=== PATIENT | male | born 1960 | race Hispanic/Latino ===

== ENCOUNTER 2018-08-01 17:04 | Inpatient (IN) | payer MEDICAID ==
[~2018-08-01] VITALS: Ht 180.3 cm; Wt 116.5 kg
[2018-08-01] MEDS ORDERED: LANTUS100 UNITS/ SUB-Q (17:17)
[2018-08-01] MEDS ORDERED: HUMULIN R100 UNIT/1 SUB-Q (17:18)
[2018-08-01] MEDS ORDERED: GABAPENTIN600 MG PO (17:21)
[2018-08-01] MEDS ORDERED: PERCOCET 5-3251 EACH PO (17:21)
--- NOTE | 2018-08-01 20:45 | NUR ---
PT ADMITTED TO ROOM 113 FROM ED NEAR 2029. PT STATED HE WAS UNABLE TO STAND HIS RIGHT KNEE GIVES OUT. HE WAS ABLE TO WITH ASSISTANCE OF STAFF, SLIDE SELF OFF STRETCHER TO HIS BED. STEVIE EDEMA LEGS, ANKLES, SCROTUM, PAINFUL WHEN MOVING. FRYE WITH ARIA URINE.
--- NOTE | 2018-08-01 20:50 | NUR ---
PT REQUESTED TO GET UP TO HAVE A BM, STAFF CONCERNED ABOUT PT COMMENT ABOUT UNABLE TO STAND D/T HIS KNEE BUT INSISTED TO GET UP TO BSC WITH 2 STAFF. PAINFUL, NO BM, BUT FLATUS. BACK TO BED, NEEDED ASSISTANCE PUTTING LEGS INTO BED, MIMINAL ASSISTANCE. PT INSISTED TO EAT THE MCDONALDS THAT HIS JACQUELINE BROUGHT. ARMANDO GRIJALVA. PT WAS SHORT COMMENTED, SHARP TONES WHEN HE RESPONDED TO QUESTIONS. WANTED THE REMOTE TO WATCH TV, AND SOMETHING FOR PAIN. EDUCATED PT ABOUT THE PROCESS OF ADMISSION. WHILE THIS NURSE WAS ADMITTING PT, DR GALLEGOS ENTERED THE ROOM, PLEASANTLY INFORMED PT THAT HE WOULD NOT BE ABLE TO CONTINUE TO EAT THIS FOOD AFTER THIS MEAL. PT WAS INSTRUCTED THAT HE IS ON A FLUID RESTRICTION, HE VERBALLY STATED HE UNDERSTOOD, HE ATE THE GEORGIAN FRIES AND DRANK THE DIET PEPSI. STATES THAT HE NEEDS A "NEW MACHINE" TO TEST HIS SUGARS, AND THAT HE HASN'T BEEN TAKING HIS INSULIN HE RAN OUT, HAS NO PCP IN THE AREA HE JUST "MOVED HERE".
--- NOTE | 2018-08-02 02:10 | NUR ---
Awake, c/o abd pain, scrotal pain and leg pain 12/09. Medicated with Oxycodone 5mg po. Warm blanket give, no c/o low or high blood sugars s/sx. NPO since midnight. f/c patent. no changes in assessment
--- NOTE | 2018-08-02 04:56 | NUR ---
CURRENTLY AWAKE, HAS BEEN MEDICATED 2X WITH OXYCODE AND 1X WITH TYLENOL PO PER C/O ABD PAIN. EFFECTIVE. PT REQUIRES ONE PERSON ASSIST, HAS BEEN UP TO BR AND NO BM. F/C PATENT. EDEMATOUS SCROTUM ELEVATED WITH PILLOWS. ABD LARGE ANDS ASCITIC, RASH OVER ABD STILL PRESENT. SEVERAL SCABS AND SCRATCHES ALL OVER BODY, IN DIFFERENT STAGES OF HEALING PRESENT. EDEMATOUS LEGS, ANKLES NAD FEET W/O CHANGES. REPOSITIONS SELF IN BED. NPO SINCE MIDNIGHT FOR AM PROCEDURE. CBG WAS 338, RECEIVED 9 UNITS SS INSULIN, DENIES S/SX OF HYPOGLYCEMIA. WAS VERY ANXIOUS, IRRITABLE AND NOT RECEPTIVE ON ADMISSION. BEHAVIOR MUCH CALMER, AND FOLLOWING INSTRUCTIONS.
--- NOTE | 2018-08-02 06:47 | NUR ---
US OF KNEES COMPLETED, PT COOPERATIVE, NO C/O PAIN, NPO
--- NOTE | 2018-08-02 07:00 | NUR ---
BEDSIDE HANDOFF REPORT RECEIVDE FROM SUPPLY CHAIN SPECIALIST RN. PT COMPLAINT OF BEING NPO, EDUCATED THAT HE IS NPO FOR ULTRASOUND THIS AM. PT DENIES OTHER NEEDS AT THIS TIME.
--- NOTE | 2018-08-02 08:00 | NUR ---
WARM WASH CLOTH OFFERED. SHOWER OFFERED. HE SAYS HE MIGHT LIKE ONE LATER. CALL LIGHT IN AX. NO FURTHER NEEDS AT THIS TIME.
--- NOTE | 2018-08-02 08:19 | NUR ---
PT ON ROOM AIR, LUNG SOUNDS CLEAR. PT RATIGN PAIN 8/10 TO ANKLES, GIVEN 5 MG OXYCODONE. PT UPDATED ON PLAN FOR ABD US AT 0900. BOWEL TONES ACTIVE, DENIES NAUSEA, ABD FIRM WITH ASCITES. PT WITH MULTIPLE SCATTERED SCABS ON ARMS AND LEGS. PT WITH FRYE, DRAINING FREELY, IV LASIX GIVEN. CMS INTACT, PT WITH EDEMA TO BLE 2+. PT DENIES OTHER NEEDS AT THIS TIME.
[2018-08-02] MEDS ORDERED: LISINOPRIL10 MG PO (08:21)
[2018-08-02] MEDS ORDERED: BASAGLAR K100 UNIT/1 SUB-Q (08:22)
--- NOTE | 2018-08-02 09:46 | NUR ---
ABD ULTRASOUND COPMPLETED. PT ASSITED TO ORDER BREAKFATS. MORNING MEDICATIONS GIVEN. PT PROVIDED WITH FRESH WATER. PT DENIES OTHER NEEDS AT THIS TIME.
--- NOTE | 2018-08-02 12:00 | NUR ---
PT BLOOD GLUCOSE 202 GIVEN SS HUMALOG 3 UNITS AND 5 UNITS HUMALIN. PT WIHT GOOD APPETITE, TOLERATING ADA DIET. PT CONTINUES TO HAVE EDEMA TO BLE 2-3+, LEGS ELEVATED. PT DENIES OTHER NEEDS AT THIS TIME.
--- NOTE | 2018-08-02 14:00 | NUR ---
PT RESTING IN BED. PT RATING PAIN 8/10 TO ANKLES AND FEET, GIVEN 5 MG OXYCODONE. PT ON ROOM AIR, LUNGH SOUNDS CLEAR. BOWEL TONES CTIVE, ASCITES UNCHANGED. EDEMA TO BLE 2-3+ UNCHANGED. PT DENIES OTHER NEEDS AT THIS TIME.
[2018-08-02] MEDS ORDERED: NORCO 7.5-3251 EACH PO (14:17)
--- NOTE | 2018-08-02 14:24 | NUR ---
SPOKE WITH PATIENT IN ROOM. PATIENT STATES HE MOVED HERE ABOUT TWO WEEKS AGO AND IS STAYING WITH HIS DAUGHTER. HE INTENDS TO BUY A HOME HERE AND STAY. DISCUSSED PCP NEED. HE STATES HE DOES NOT HAVE INSURANCE IN [place] YET. DISCUSSED I CAN TALK WITH OUR FIG WASHER AND HAVE HER WORK WITH HIM. HE IS AGREEABLE TO THIS. DISCUSSED OPTIONS FOR PRIMARY CARE IN TOWN, AND SURROUNDING AREA. STATES HE CAN'T SEE ANYONE UNTIL HE GETS INSURANCE. DISCUSSED HE WILL NEED TO GET OLD RECORDS TRANSFERRED. PATIENT STATES HE NORMALLY DOES NOT USE DME, ALTHOUGH HE HAS A CANE. STATES HE COULDN'T GET OOB BECAUSE OF HIS LEG SWELLING AND MIGHT NEED A WALKER. STATES HE JUST STARTED GETTING SOME DISABLILITY PAYMENTS. STATES HE WANTS TO TALK WITH HIS DAUGHTER ABOUT WHO TO SEE IN THE AREA. STATES HIS DAUGHTERS PLACE HAS TWO STEPS IN AND HE SLEEPS ON FIRST LEVEL, BATHROOM IS ON SECOND FLOOR. STATES HE IS GOING TO LOOK FOR A ONE STORY PLACE IN [facility]. DISCUSSED WITH PATIENT THAT WE WILL START WITH INSURANCE NEEDS AND WILL CONTINUE TO FOLLOW HERE AND AFTER DISCHARGE. HE IS IN AGREEMENT WITH THIS. DISCUSSED CHW PROGRAM, HE IS INTERESTED IN THIS.NO FURTHER QUESTIONS AT THIS TIME. WILL CONTINUE TO FOLLOW. SPOKE WITH NICKEL PLATER WHO IS GOING TO CALL AND OBTAIN OLD RECORDS WITH INFORMATION PATIENT GAVE HER. SPOKE WITH [employer] FIG WASHER TO REQUEST HER TO WORK WITH PATIENT ON COVERAGE. SHE AGREED. STAFF UPDATED.
--- NOTE | 2018-08-02 14:25 | NUR ---
Medications reconciled using pharmacy records and patient interview
--- NOTE | 2018-08-02 17:28 | NUR ---
PT GIVEN 7 UNITS SS HUMALOG AND 5 UNITS HUMALIN PER ORDER. PT EATING DINNER. PT DENIES OTHER NEEDS AT THIS TIME.
--- NOTE | 2018-08-02 17:29 | NUR ---
PT ON ROOM AIR, LUNG SOUNDS CLEAR. PT WITH ASCITES, ABD US SHOWED PORTAL HYPERTENSION. PT TOLERATING ADA DIET WITH FLUID RESTRICTION, ACHS ACCUCHECKS, HUMALIN, SS HUMALOG AND LANTUS. PT WITH EDEMA TO BLE 2-3+, SCOTAL SWELLING. 1PA TO AMBULATE. PT WITH FRYE CATH, DRAINING FREELY. PAIN WELL CONTROLLED WITH OXYCODONE 5 MG AND GABAPENTIN.
--- NOTE | 2018-08-02 19:33 | NUR ---
PATIENT IS SETTING UP IN BED WATCHING TV, NO NEEDS AT THIS TIME.
--- NOTE | 2018-08-02 21:23 | NUR ---
PATIENT HAS RECEIVED PM MEDS PAIN WS AT 02/08. PATIENTCURRENTLY RESSTING IN BED WATCHING TV.
--- NOTE | 2018-08-02 23:30 | NUR ---
PATIENT IS SITTING UP IN BED WATCHING TV. PAIN IS DOWN FROM A 10/10 TO 7/10.
--- NOTE | 2018-08-03 01:11 | NUR ---
PATIENT JUST GOT BACK INTO BED AFTER USING THE BATHROM ANDD HAVING A BIG BM. CATHETER IS STILL WORKING FINE. WAS CALLED AND AN ORDER FOR 50MG PO TRAZADONE WAS GIVEN TO HELP THE PATIENT SLEEP.
--- NOTE | 2018-08-03 01:50 | NUR ---
PATIENT JUST GOT 5MG PO OXYCODONE. HE SAID THE TRAZIDONE WAS MAKING HIM SLEEPY, BUT WITH THE PAIN MEDICATION ON TOP OF IT, HE SHOULS BE ABLE TO GET SOME SLEEP.
--- NOTE | 2018-08-03 03:15 | NUR ---
PATIENT RESTING SUPINE, EYES CLOSED, RESPIRATIONS REGULAR AND EVEN AT 16. NO S/S OF DISTRESS.
--- NOTE | 2018-08-03 05:29 | NUR ---
PATIENT IS FINALLY RESTING QUIETLY, FRYE IS DRAINING WELL. PATIENT HAS BEEN ABLE TO AMBULATE INTO THE BATHROOM WITH ONE PERSON ASSIST AND HAS HAD HIS FIRST BM TONIGHT. STICKING TO HIS FLUID RESTRICTION.PATIENT HAS HAS TWO 5MG OXYCODONE FOR PAIN AND ON 50MG TRAZADONE THIS SHIFT AND APPEARS TO HAVE GOTTEN SOME SLEEP THE SECOND HALF OF THE SHIFTNOTHING ELSE TO REPORT AT THIS TIME.
--- NOTE | 2018-08-03 08:00 | NUR ---
PATIENT RESTING IN BED. ICE WATER GIVEN. CALL LIGHT WITHIN REACH. NO OTHER NEEDS AT THIS TIME
--- NOTE | 2018-08-03 08:15 | NUR ---
MD NOTIFIED OF PT BLOOD SUGAR OF 53, JUICE, CRACKERS AND PEANUT BUTTER GIVEN. PT BREAKFAST TRAY GIVEN, RECHECK OF BG 90. MORNING INSULIN HELD. NO NEW ORDERS.
--- NOTE | 2018-08-03 09:35 | NUR ---
PATIENT SLEEPING. VITAL SIGNS DONE BY RN. I&O DONE. CALL LIGHT WITHIN REACH. NO OTHER NEEDS AT THIS TIME
--- NOTE | 2018-08-03 10:03 | NUR ---
CHW PROVIDED PATIENT CURRENT INPATIENT RECORDS TO [employer] TO REVIEW PATIENT TO SEE IF A FOLLOW UP APT CAN BE MADE AFTER THE HOSPITALIZATION. GWEN STATED SHE WOULD BE IN CONTACT WITH ME WHEN SHE HEARS BACK ON THE STATUS. PRIETO FROM DIABETES EDUCATION WAS NOT AVAILABLE. CHW FOUND A COUPON ONLINE THAT IS PROVIDED BY [employer] PROVIDES FREE METER PATIENT WOULD HAVE TO PAY FOR THE TESTING STRIPS. AT [facility] THERE IS OPTIONS OF METER AND TESTING STRIPS FOR $15 A PACKAGE. PATIENT CURRENTLY HAS [facility] PL[facility] AND THAT INSURANCE DOES NOT COVER PHARMACIES IN THIS AREA. PATIENT CAN APPLY FOR MEDICAID IN [place] AT THE END OF THE MONTH.
--- NOTE | 2018-08-03 10:04 | NUR ---
PATIENT RESTING IN BED. PATIENT REFUSED TO TAKE A SHOWER TODAY BECAUSE HE TOOK A SHOWER YESTERDAY. ORAL CARE DONE BY PATIENT. CALL LIGHT WITHIN REACH. NO OTHER NEEDS AT THIS TIME
--- NOTE | 2018-08-03 11:39 | NUR ---
PATIENT RESTING IN BED. PATIENT'S LUNCH ORDERED. CALL LIGHT WITHIN REACH. NO OTHER NEEDS AT THIS TIME
--- NOTE | 2018-08-03 13:52 | NUR ---
PATIENT RESTING IN BED. VITAL SIGNS AND I&O DONE. PATIENT ASKS FOR PAIN MEDICINE. RN IN CHARGE NOTIFIED. CALL LIGHT WITHIN REACH. NO OTHER NEEDS AT THIS TIME
--- NOTE | 2018-08-03 14:00 | NUR ---
PT RATING PAIN 8/10, REQUESTING OXYCODONE, 5 MG GIVEN. PT ON ROOM AIR LUNG SOUNDS CLEAR. PT CONTINUES TO HAVE EDEMA TO BLE 3-4+. NO ACUTE CHANGES. DISCUSSED GETTING TO CHAIR FOR DINNER, PT REPORT OF PAIN WITH SITTING IN SCROTUM, DISCUSSED LIFTING SCROTUM BEFORE SITTING TO DECREASE PAIN AND PRESSURE. PT DENIES OTHER NEEDS AT THIS TIME.
--- NOTE | 2018-08-03 14:08 | NUR ---
ZO SCHRADER EXPRESSED THAT PT WAS NOT HAPPY ABOUT LUNCH BEING SO LATE, AND THAT HE APPARENTLY COULD NOT FIND CONDIMENTS-RN HELPING PT WITH LUNCH. FELT IT BEST TO LET PT HAVE LUNCH AND CHECK BACK AGAIN. WILL FOLLOW NEEDED
--- NOTE | 2018-08-03 14:16 | NUR ---
ENERGY EFFICIENCY ENGINEER IS ON VACATION SO I STOPPED IN TO TALK TO PATIENT. HE SAW A DIETITIAN IN [place] YEARS AGO. HE SAID THEY TAUGHT HIM WHAT'S GOOD AND WHAT'S BAD TO EAT. HE JUST MOVED TO [place] AND IS LIVING WITH DAUGHTER. HE IS NOT FOLLOWING A SPECIFIC MEAL PLAN. HE COUNTS CARBS "SOMETIMES." STATED HE IS NOT INTERESTED IN ANY INFO RIGHT NOW. HE JUST WANTS TO REST "HE IS HAVING A BAD DAY."
--- NOTE | 2018-08-03 15:35 | NUR ---
PT ALERT/ORIENTED. PT ON ROOM AIR, LUNG SOUNDS CLEAR. PT TOLERATING DIABETIC DIET, HYPOGLYCEMIC THIS AM BG 53. PT WITH EDEMA TO ABD, SCROTUM AND BLE. PT WITH PAIN AND NUMBNESS TO FEET, HX NEUROPATHY. PAIN WELL CONTROLLED WITH OXYCODONE 5MG. PT SALINE LOCKED, IV LASIX. PT WITH FRYE CATH, QS, HAD BM TODAY. PT UP WITH 1PA WITH FWW.
--- NOTE | 2018-08-03 15:52 | NUR ---
DISCUSSED WITH STAFF NURSE ANA AND GAVE HER FREE GLUCOSE METER SHEET FOR CHART. PHARMACY IS LOOKING INTO OPTIONS FOR MEDS BEING SENT AT DISCHARGE AND CHW WORKING ON TRYING TO GET APPT AT [facility] FOR FOLLOW UP.
--- NOTE | 2018-08-03 16:01 | NUR ---
I ORDERED PATIENT'S DINNER AND ALSO HIS BREAKFAST.
--- NOTE | 2018-08-03 17:10 | NUR ---
Pt sitting up in bed eating dinner and watching tv. Pt requested and received butter, fresh ice water in reach. 3 units Sub Q insulin administered -See EMAR. Pt denies further needs/concerns. Call light and h20 in reach.
--- NOTE | 2018-08-03 18:56 | NUR ---
PT RESTING SUPINE IN BED REPORTS NASAL CONGESTION AND 7/10 ANKLE PAIN. BP 167/92, HR 76 O2 SAT 99% ON RA. MD NOTIFIED, NO NEW ORDERS AT THIS TIME. CALL LIGHT AND H20 IN REACH. PT DENIES SOB.
--- NOTE | 2018-08-03 20:11 | NUR ---
BLOOD SUGAR DONE NAND CHARTED. ALSO INFORMED RN GLORIA OF #
--- NOTE | 2018-08-03 20:59 | NUR ---
PATIENT EATING SOME SUGAR FREE ICE CREAM, AND WATCHING TV WITH FAMILY.
--- NOTE | 2018-08-03 22:47 | NUR ---
c/o scrotum and ankle pain, medicated with tylenol 500mg po , continues on fluids restricton. no other requets, Taken over care at this time
--- NOTE | 2018-08-04 01:45 | NUR ---
RESTING, EYES CLOSED, NO DISTRESS. CALL LIGHT AT BEDSIDE, CONTINUES ON FLUIDS RESTRICTION
--- NOTE | 2018-08-04 05:15 | NUR ---
CURRENTLY IN BED RESTING. WEIGHT IS269.2# BED. CONTINUES TO BE ON FLUID RESTRICTIONS. EDEMATOUS SCROTUM W/O CHANGES, EDEMA OF LEGS,ANKLES AND FEET 2+ NON PITTING. RASH OVER ABD AND SCROTUM PRESENT. VARIOUS SCRATCHES AND SCABS OVER BODY W/O CHANGES. WAS MEDICATED WITH TYLENOL 500MG X1 AND OXYCODONE 5MG PO X1 PER C/O SCROTAL/LEG AND ANKLES PAIN, EFFECTIVE. F/C PATENT, DRAINING YELLOW URINE. QS. CALL LIGHT AT BEDSIDE, COOP WITH VITALS AND ASSESSMENTS
--- NOTE | 2018-08-04 05:45 | NUR ---
VITALS AND DAILY WEIGHT DONE AND CHARTED. INFORMED RN IZZY OF HIGH BLOOD PRESSURE. BEDSIDE TABLE AND CALL LIGHT IN REACH.
--- NOTE | 2018-08-04 08:50 | NUR ---
PT REPORTS 10/10 PAIN TO RIGHT ANKLE STATES IT IS IN THE SAME AREA THAT IT USUALLY ALWAYS HURTS BUT STATES IT IS WORSE THAN USUAL. DR GALLEGOS NOTIFIED; NO NEW ORDERS AT THIS TIME. PRN PO TYLENOL AND OXYCODONE WAS ADMINISTERED PO ALONG WITH SCHEDULED AM MEDICATIONS. ASSESSMENT COMPLETED. CALL LIGHT AND H20 IN REACH. SUGAR FREE CAROT CAKE ORDERD PER PT REQUEST. PT WATCHING TV, RESPIRATIONS EVEN AND UNLABORED AT 16.
--- NOTE | 2018-08-04 09:24 | NUR ---
PATIENT RESTING IN BED. VITAL SIGNS AND I&O DONE. PATIENT ASKS FOR CARROT CAKE. PATIENT'S CARROT CAKE ORDERED. PATIENT ASKS FOR SOME MEDICINE FOR HIS SINUSITIS. RN NOTIFIED. WARM BLANKET PROVIDED. CALL LIGHT WITHIN REACH. NO OTHER NEEDS AT THIS TIME
--- NOTE | 2018-08-04 13:31 | NUR ---
PATIENT RESTING IN BED. VITAL SIGNS AND I&O DONE. PATIENT ASKS FOR PUDDING SUGAR FREE. PUDDING SUGAR FREE GIVEN. CALL LIGHT WITHIN REACH. NO OTHER NEEDS AT THIS TIME
--- NOTE | 2018-08-04 14:48 | NUR ---
PT REPORTS PAIN OF 7/10 TO RIGHT ANKLE. PRN PO TYLENOL, OXYCODONE AND SCHEDULED GABAPENTIN ADMINISTERED PER PT REQUEST. ASSESSMENT COMPLETED. CALL LIGHT AND FRESH ICE WATER PROVIDED. NO FURTHER NEEDS VOICED.
--- NOTE | 2018-08-04 15:01 | NUR ---
PATIENT CALLS TO GET A SNACK. PATIENT'S SNACK AND DINNER ORDERED. CALL LIGHT WITHIN REACH. NO OTHER NEEDS AT THIS TIME
--- NOTE | 2018-08-04 16:21 | NUR ---
PATIENT CALLS TO USE BATHROOM. PATIENT IN BED. FAMILY IN ROOM. PATIENT GOES TO USE BATHROOM. PATIENT USES A WALKER. ONE PERSON ASSITING. LINENS CHANGED. PATIENT BACKS TO BED. CALL LIGHT WITHIN REACH. NO OTHER NEEDS AT THIS TIME
--- NOTE | 2018-08-04 17:23 | NUR ---
pt states "I cant go 13 hours with this smal dinner I got, if I dont get some more food I'm going to walk out and go home. I eat whateverIi wan't at home and it's fine" Pt educated on importance of adhering to diet ordered in order to keep blood sugar from raising too high. Dietary norified of pt's request and agree to bring pt low carb low sodium snack. Call light and h20 in reach. pt denies further needs/concerns
--- NOTE | 2018-08-04 17:25 | NUR ---
PATIENT RESTING IN BED. VITAL SIGNS AND I&O DONE. PATIENT ASKS FOR MORE FOOD, THIS AUTO REPAIR TECHNICIAN CALL THE KITCHEN BUT THEY SAID THAT THEY CAN NOT BRING MORE FOOD BECAUSE EXCEEDS THE AMOUNT OF CARBOHYDRATES, THE PATIENT IS UPSET. RN NOPTIFIED. CALL LIGHT WITHIN REACH. NO OTHER NEEDS AT THIS TIME
--- NOTE | 2018-08-04 17:48 | NUR ---
PT CURRENTLY RESTING IN BED WATCHING TV. PT COMPLIANT WITH 1800 FLUID RESTRICTION. PT REMAINS ON60 GM CARB/ADA DIET BUT REQUESTS MORE FOOD, DIETARY AWARE OF PT'S REQUESTS AND AGREE TO PROVIDE PT WITH LOW CARB SNACK. PT REMAINS A/O X4. PT COMPLIANT WITH CARE BUT THREATENS TO WALK OUT OF HOSPITAL WHEN THINGS ARE NOT GOING THE WAY HE WOULD LIKE THEM TO SUCH WHEN HIS DINNER PORTION WASN'T WHAT HE HOPED AND WHEN HE FELT HIS CHRONIC JOINT PAIN WASN'T BEING CONTROLLED WELL ENOUGH. PT REPORTS MAJORITY OF PAIN IS IN RIGHT ANKLE BUT ALSO HAS PAIN TO LEFT ANKLE AND RIGHT KNEE. DR GALLEGOS INCREASED GABAPENTIN DOSE FOR BETTER PAIN CONTROL. MORE RECENTLY DR ANDRADE INCREASED PT'S OXYCODONE TO 7.5MG AND ORDERED TOPICAL CREAM WELL. FRYE CATH WAS REMOVED TODAY AND PT HAS VOIDED SINCE. PT CONTINUES WITH AC/HS CBG CHECKS WITH S/S INSULIN. BILAT EDEMA TO LE'S PERSISTS DOES SWELLING TO GROIN AND ABDOMINAL DISTENTION. PT HAS DENIES DIFFICULTY BREATHING OR ANY OTHER CONCERNS WITH HIS CARE. SKIN CONDITION REMAINS UNCHANGED. PT ABLE TO AMBULATE IN ROOM AND WITH FWW AND ONLY REQUIRES MINIMUM 1PA TO LIFT RIGHT LEG BACK INTO BED.
--- NOTE | 2018-08-04 19:19 | NUR ---
RECIEVED BEDSIDE REPORT FROM STACY PATHAK. PATIENT AMBULATING IN HALLWAY WITH FWW, PATIENT SAFELY BACK INTO BED. WHITE BOARD UPDATED. PATIENT DENIES ANY NEEDS AT THIS TIME. CALL LIGHT WITHIN REACH.
--- NOTE | 2018-08-04 21:30 | NUR ---
ASSESSMENT COMPLETE, REFER TO ASSESSMENT. PATIENT REPORTS PAIN IN RIGHT LOWER LEG ON LATERAL SIDE, PRN PAIN MEDICATION ADMINISTRED TO PATIENT BY SPECIAL PROCEDURES TECH BEFORE ASSESSMENT. PATIENT REPORTS PAIN A "8/10" AND STATES "PAIN IS STARTING TO GO DOWN". WARM PACK APPLIED TO RIGHT LEG BY SPECIAL PROCEDURES TECHPRIETO. PATIENT DENIES HAVING SOB OR DIFFICULTY BREATHING, BUT REPORTS HAVING SOB WHILE EATING OR DRINKING WHEN PATIENT'S NOSE IS "PLUGGED". PATIENT REPORTS NUMBNESS IN BLE. +2 EDEMA NOTED IN BLE, PATIENT REFUSED TO HAVE BLE ELEVATED ON PILLOWS. MEDICATIONS ADMINSTERED PER MAR ORDER. CALL LIGHT WITHIN REACH. NO MORE NEEDS AT THIS TIME. URINAL PROVIDED TO PATIENT PER PATIENT REQUEST.
--- NOTE | 2018-08-04 22:16 | NUR ---
ROUNDED ON PATIENT LAYING AWAKE IN BED TO ADMINISTER PRN NASAL SPRAY PER PATIENT REQUEST AND PER JUN ORDER. CALL LIGHT WITHIN REACH. NO MORE NEEDS AT THIS TIME.
--- NOTE | 2018-08-04 22:26 | NUR ---
VS and I&O's were complete.
--- NOTE | 2018-08-05 00:14 | NUR ---
patient requested Jell-o and he had wiggle room with his liquids so it was approved.
--- NOTE | 2018-08-05 00:16 | NUR ---
ROUNDED ON PATIENT LAYING AWAKE IN BED. PATIENT REPORTS PAIN A "4/10" AND STATES PAIN IS "DOING PRETTY GOOD RIGHT NOW". CALL LIGHT WITHIN REACH. NO MORE NEEDS AT THIS TIMES.
--- NOTE | 2018-08-05 00:49 | NUR ---
PT WAS AMBULATING IN THE HALLWAY AND DID WELL. PT AT THIS TIME IS BACK IN BED WATCHING TV. PT HAS NO NEEDS AT THIS TIME. NO NEW COCNERNS NOTED EITHER.
--- NOTE | 2018-08-05 01:41 | NUR ---
ROUNDED ON PATIENT RESTING IN BED WITH EYES CLOSED, RESPIRATORY RATE IS EVEN AND UNLABORED. CALL LIGHT WITHIN REACH.
--- NOTE | 2018-08-05 04:24 | NUR ---
ASSESSMENT COMPLETE, REFER TO ASSESSMENT. PATIENT REPORTS "9/10" PAIN IN RIGHT KNEE AND SCROTAL AREA, PRN PAIN MEDICATION ADMINISTERED PER JUN ORDER. PATIENT REPORTS PAIN IN RIGHT KNEE AND RIGHT ANKLE, PRN JOINT PAIN CREAM APPLIED PER JUN ORDER. PATIENT INDEPENENTLY AMBULATED TO RESTROOM TO USE TOILET WITH THIS RN IN ROOM, PATIENT SAFELY BACK INTO BED. PATIENT DENIES CHEST PAIN, SOB OR DIFFICULT BREATHING. SUGAR FREE JELLO PROVIDED PER PATIENT REQUEST. PATIENT REPORTS NUMBNESS IN LUE AND BLE. CALL LIGHT WITHIN REACH. NO MORE NEEDS AT THIS TIME.
--- NOTE | 2018-08-05 05:25 | NUR ---
NOTIFED BY PSYCHOLOGICAL SCIENCE PROFESSOR THAT PATIENT REPORTED FEELING "WEAK" AND THAT THE PATIENT FELT THEIR BLOOD SUGAR WAS GETTING LOW. PSYCHOLOGICAL SCIENCE PROFESSOR OBTAINED PATIENT'S BLOOD GLUCOSE TO BE WNL. PATIENT REQUESTED FOOD THROUGHOUT THE NIGHT, THIS RN AND OTHER NURSING STAFF OFFERED PATIENT SUGAR FREE JELLO AND OTHER SNACKS WITHIN 60G CONSISTENT CARB DIET. PATIENT MOSTLY COMPLIANT WITH SUCH INTERVENTIONS THROUGHOUT THE NIGHT. PATIENT EXPRESSED FRUSTRATION AND RAISED VOICE AT THIS RN PATIENT WAS UPSET THAT PATIENT NEEDED SOMETHING MORE TO EAT TO DUE PATIENT REPORTS OF BEING "STARVING". PATIENT NON COMPLIANT WITH INTERVENTIONS ATTEMPTED BY NURSING STAFF TO FOLLOW SAW'S DIET ORDER AND INSISTENT ON RECIEVING ORANGE JUICE. SANDWICH PACK AND SMALL AMOUNT OF ORANGE JUICE PROVIDED TO PATIENT AND BREAKFAST ORDER RECIEVED WELL. PATIENT DEMEANOR CHANGE ONCE SANDWICH AND BREAKFAST ORDER OBTAINED. CALL LIGHT WITHIN REACH. NO MORE NEEDS AT THIS TIME.
--- NOTE | 2018-08-05 05:48 | NUR ---
patient was concerned about his Blood Sugar so i informed ZO Jeffries and she directed me to do a check. the reading was 86 and he insisted he was starving so i ran down and got him a sandwich box. this seemed to make him happy. he was raising his voice and repeating himself about how he wanted to leave.
--- NOTE | 2018-08-05 07:00 | NUR ---
Report received from ZO Jeffries. Pt resting supine in bed, watching tv. Call light and h20 in reach. Pt states "I'm just up waiting for breakfast" Pt denies needs/concerns and appears to be in no acute distress.
--- NOTE | 2018-08-05 07:05 | NUR ---
rounded on patient laying awake in bed. reassesed patient's pain, patient reports "6/10" pain. call light within reach. no more needs at this time.
--- NOTE | 2018-08-05 08:04 | NUR ---
PT AMBULATING UP TO NURSES STATION AND GOES TO TRAY SITTING AT NURSES STATION, READS PAPER AND SAYS "HEY THIS IS MINE WHY'S IT SITTING HERE GETTING COLD I'M STARVING". PT BACK TO ROOM, BS CHECKED -SEE EMAR. PT EATING BREAKFAST ASKS FOR EXTRA SAUSAGES AND THREE EXTRA BUTTERS. PT WAS EDUCATED ON HIS ADA DIET THAT IS ORDERED AND WAS INFORMED THAT THIS IS A DOCTORS ORDER SO WE ARE UNABLE TO ORDER MORE FOOD AT THIS TIME. CALL LIGHT AND H20 IN REACH AND PT DENIES FURTHER NEEDS.
--- NOTE | 2018-08-05 09:09 | NUR ---
PT UP AMBULATING IN ROOM, AM MEDS ADMINISTERED AND ASSESSMENT COMPLETED. CALL LIGHT AND H2O IN REACH. PT DENIES FURTHER NEEDS. OT IN TO SEE PATIENT.
--- NOTE | 2018-08-05 09:32 | NUR ---
PATIENT IN BED WATCHING TV. VITAL SIGNS AND I&O DONE. PATIENT REFUSED TO TAKE A SHOWER TODAY BECAUSE HE TOOK A SHOWER YESTERDAY. CALL LIGHT WITHIN REACH. NO OTHER NEEDS AT THIS TIME
[2018-08-05] MEDS ORDERED: GABAPENTIN600 MG PO (12:09)
[2018-08-05] MEDS ORDERED: FUROSEMIDE40 MG PO (12:10)
[2018-08-05] MEDS ORDERED: BASAGLAR K100 UNIT/1 SUB-Q (12:10)
[2018-08-05] MEDS ORDERED: OXYCODONE HCL5 MG PO (12:12)
[2018-08-05] MEDS ORDERED: SPIRONOLACTONE25 MG PO (12:12)
[2018-08-05] MEDS ORDERED: LISINOPRIL10 MG PO (12:12)
--- NOTE | 2018-08-05 13:55 | NUR ---
PT DC HOME AT THIS TIME WITH SHONA SON IN LAW, PHARMACY IN TO SPEAK WITH PT AND SON IN LAW. DC INSTRUCTION REVIEWED WITH PT, VERBALIZED UNDERSTANDING, NO QUESTIONS, STATES HE HAS EVERYTHING COVERED. SL DC. WC TO FRONT OF HOSPITAL.
== END 2018-08-05 13:45 | disposition home or self-care (01) | DRG 433 ==
LOC: ED 17:04 → MS 19:58
PROVIDERS: ADMIT Student in an Organized Health Care Education/Training Program
DX: K74.60 Unspecified cirrhosis of liver (principal); F11.20 Opioid dependence, uncomplicated; B18.2 Chronic viral hepatitis C; E11.9 Type 2 diabetes mellitus without complications; I10 Essential (primary) hypertension; G89.4 Chronic pain syndrome; D63.8 Anemia in other chronic diseases classified elsewhere; F17.200 Nicotine dependence, unspecified, uncomplicated; M25.561 Pain in right knee; Z79.4 Long term (current) use of insulin; Z79.899 Other long term (current) drug therapy
CPT/HCPCS: 36415; 51702; 71045; 73560; 73610; 76700; 76705; 80048; 80053; 80074; 81001; 82140; 82728; 83036; 83540; 83735; 83880; 84466; 85025; 85610; 85730; 87521; 87522; 87902; 97161; 97165; 99284-25; 99406; J1170; J1650; J1815; J1940; J2405

== ENCOUNTER 2018-08-12 22:14 | Emergency (ER) | payer MEDICAID ==
[~2018-08-12] VITALS: Ht 180.3 cm; Wt 126.1 kg
[~2018-08-12 22:14] MED LIST: BASAGLAR K100 UNIT/1 SUB-Q; FUROSEMIDE40 MG PO; GABAPENTIN600 MG PO; HUMULIN R100 UNIT/1 SUB-Q; LANTUS100 UNITS/ SUB-Q; LISINOPRIL10 MG PO; NORCO 7.5-3251 EACH PO; OXYCODONE HCL5 MG PO; PERCOCET 5-3251 EACH PO; SPIRONOLACTONE25 MG PO
--- OUTSIDE RECORDS SUMMARY | 2018-08-12 22:16 | XMS ---
PreManage Notification: ROCHELLE NOWAK Security Credit Office Manager Events No recent Security Events currently on file CRITERIA MET - [facility] - 2 Visits in 30 Days CARE PROVIDERS YOUNG [facility] Current PHONE: [phone] Anni has no Care Guidelines for this patient. Val VISIT COUNT (12 MO.) 2 Bayron Begum [address] [place] [address] TOTAL 4 NOTE: Visits indicate total known visits. ED/C VISIT TRACKING (12 MO.) 08/12/2018 22:14 [facility] TYPE: Emergency COMPLAINT: - SOB 08/01/2018 17:05 [facility] TYPE: Emergency COMPLAINT: - SOB 07/01/2018 10:37 [facility] TYPE: Emergency DIAGNOSES: - Abdominal Pain - Other ascites - Unspecified abdominal pain - Other chronic pain - Abd Pain - Chronic viral hepatitis C 06/22/2018 08:30 [facility] TYPE: Emergency DIAGNOSES: - Diarrhea, unspecified - Hyperglycemia, unspecified - abd pain - Other ascites - Abdominal Pain - Unspecified cirrhosis of liver INPATIENT VISIT TRACKING (12 MO.) 08/01/2018 19:[address] [facility] TYPE: Medical Surgical COMPLAINT: - ANASARCA DIAGNOSES: - intermediate manager (current) use of insulin - Anemia in other chronic diseases classified elsewhere - Chronic pain syndrome - Generalized edema - Nicotine dependence, unspecified, uncomplicated - Other mcc (current) drug therapy - Essential (primary) hypertension - Other salvage determiner (current) drug therapy - Chronic viral hepatitis C - Unspecified cirrhosis of liver - Opioid dependence, uncomplicated - Chronic viral hepatitis C - Pain in right knee - Essential (primary) hypertension - Type 2 diabetes mellitus without complications - Nicotine dependence, unspecified, uncomplicated - Pain in right knee - Chronic pain syndrome - Type 2 diabetes mellitus without complications - Anemia in other chronic diseases classified elsewhere - Opioid dependence, uncomplicated - correction (current) use of insulin - Unspecified cirrhosis of liver [email or web address]
[2018-08-12] MEDS ORDERED: OXYCODONE HCL5 MG PO (23:53)
== END 2018-08-13 00:26 | disposition home or self-care (01) ==
LOC: ED 22:14
DX: K74.60 Unspecified cirrhosis of liver (principal); R18.8 Other ascites; E11.9 Type 2 diabetes mellitus without complications; I10 Essential (primary) hypertension; E78.5 Hyperlipidemia, unspecified; F17.200 Nicotine dependence, unspecified, uncomplicated; Z79.899 Other long term (current) drug therapy; Z79.4 Long term (current) use of insulin
CPT/HCPCS: 71045; 80053; 82140; 83735; 83880; 84484; 85025; 96374; 96375; 96376; 99285-25; J1170; J2405

== ENCOUNTER 2018-08-20 05:13 | Emergency (ER) | payer MEDICAID ==
[~2018-08-20] VITALS: Ht 180.3 cm; Wt 112.8 kg
--- OUTSIDE RECORDS SUMMARY | 2018-08-20 05:16 | XMS ---
PreManage Notification: ROCHELLE NOWAK Security Licensed Esthetician Events No recent Security Events currently on file CRITERIA MET - [facility] - 2 Visits in 30 Days CARE PROVIDERS YOUNG [facility] Current PHONE: [phone] Anni has no Care Guidelines for this patient. Val VISIT COUNT (12 MO.) 2 Bayron Begum [address] [place] [address] TOTAL 5 NOTE: Visits indicate total known visits. ED/UCC VISIT TRACKING (12 MO.) 08/20/2018 05:14 [facility] TYPE: Emergency COMPLAINT: - ABD PAIN/GROIN PAIN-NON INJURY 08/12/2018 22:14 [facility] TYPE: Emergency COMPLAINT: - SOB DIAGNOSES: - bed bug exterminator (current) use of insulin - Unspecified cirrhosis of liver - Nicotine dependence, unspecified, uncomplicated - Other bed bug exterminator (current) drug therapy - Essential (primary) hypertension - Hyperlipidemia, unspecified - Shortness of breath - Other ascites - Type 2 diabetes mellitus without complications 08/01/2018 17:05 [facility] TYPE: Emergency COMPLAINT: - SOB 07/01/2018 10:37 [facility] TYPE: Emergency DIAGNOSES: - Abdominal Pain - Other ascites - Unspecified abdominal pain - Other chronic pain - Abd Pain - Chronic viral hepatitis C 06/22/2018 08:30 [facility] TYPE: Emergency DIAGNOSES: - Diarrhea, unspecified - Hyperglycemia, unspecified - abd pain - Other ascites - Abdominal Pain - Unspecified cirrhosis of liver INPATIENT VISIT TRACKING (12 MO.) 08/01/2018 19:58 [facility] TYPE: [facility] COMPLAINT: - ANASARCA DIAGNOSES: - bed bug exterminator (current) use of insulin - Anemia in other chronic diseases classified elsewhere - Chronic pain syndrome - Generalized edema - Nicotine dependence, unspecified, uncomplicated - Other detention (current) drug therapy - Essential (primary) hypertension - Other detention (current) drug therapy - Chronic viral hepatitis [...] classified elsewhere - Opioid dependence, uncomplicated - bed bug exterminator (current) use of insulin - Unspecified cirrhosis of liver [email or web address]
[2018-08-20] MEDS ORDERED: OXYCODONE HCL5 MG PO (05:35)
== END 2018-08-20 06:13 | disposition home or self-care (01) ==
LOC: ED 05:13
DX: K72.10 Chronic hepatic failure without coma (principal); G89.29 Other chronic pain; N50.82 Scrotal pain; E11.9 Type 2 diabetes mellitus without complications; I10 Essential (primary) hypertension; E78.5 Hyperlipidemia, unspecified; Z86.19 Personal history of other infectious and parasitic diseases; Z87.891 Personal history of nicotine dependence; Z79.4 Long term (current) use of insulin
CPT/HCPCS: 99284